=== PATIENT | female | born 1955 | race Caucasian/White ===

== ENCOUNTER 2021-11-02 13:39 | Emergency (ER) | payer MEDICARE, SELFPAY ==
[2021-11-02 14:06] VITALS: BP 106/76; PULSE 103; RESP 18; TEMP 36.4; O2SAT 85; BMI 26.6
--- NOTE | 2021-11-02 14:07 | ECG_ITS ---
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 Measurements Intervals [place] Rate: 95 P: 3 [place]: 135 QRS: -19 QRSD: 102 T: 30 QT: 375 QTc: 473 Interpretive Statements SINUS RHYTHM VOLTAGE CRITERIA FOR LVH [MEETS CRITERIA IN ONE OF: R(aVL), S(V1), R(V5), R(V5/V6)+S(V1)] INTERPRETATION BASED ON A DEFAULT AGE OF 40 YEARS No previous ECG available for comparison Electronically Signed On 11-03-2021 8:14:35 TREE SAPPER by Shruti Velez M.D. [id number] f
--- NOTE | 2021-11-02 14:07 | XRR_ITS ---
PROCEDURE INFORMATION: Exam: XR Chest Exam date and time: 11/02/2021 2:07 PM Age: 66 years old Clinical indication: Shortness of breath; Additional info: SOB TECHNIQUE: Imaging protocol: XR of the chest. Views: 1 view. COMPARISON: No relevant prior studies available. FINDINGS: Lungs: Ill-defined hazy peripheral opacification along the peripheral left lung base. Bibasilar scarring noted. Pleural spaces: Left costophrenic blunting may relate to trace left pleural effusion or scarring. No pneumothorax. Heart/Mediastinum: Unremarkable. No cardiomegaly. Bones/joints: Unremarkable. XR/XR chest 1V portable [id number] IMPRESSION: 1. Ill-defined peripheral opacification along the peripheral left lung base, possibly an infiltrate. 2. Left costophrenic blunting which may relate to trace left pleural effusion or scarring.
--- NOTE | 2021-11-02 14:16 | ED_ITS ---
HPI - SOB/Dyspnea General: Chief Complaint: Shortness of Breath/Dyspnea Stated Complaint: low o2, cough, covid , weak, sob Time Seen by Provider: 11/02/21 14:03 Source: patient Mode of arrival: ambulatory Limitations: no limitations History of Present Illness: HPI Narrative: 66-year-old female states she tested positive for COVID 10 days ago. States she received the monoclonal antibody infusion yesterday. States today her pulse ox is been running in the high 80s she states she has had some very mild shortness of breath. She denies any chest pain denies any fever patient here is on 2 L and satting 93% denies any leg swelling or pain. Associated symptoms: Deny abdominal pain, chest pain, fever(s), nausea or v omiting Review of Systems Const: Denies: fever(s), chills, body aches or change in appetite Eyes: Denies: blurry vision or eye discomfort ENMT: Denies: throat pain or dental pain Card: Denies: chest pain Resp: Reports: dyspnea and non-productive cough GI: Denies: abdominal pain, nausea, vomiting or diarrhea : Denies: dysuria Musc: Denies: neck pain or back pain Skin/Breast: Denies: rash Neuro: Denies: headache(s) Psych: Denies: depression [place]/Lymph: Denies: easy bruising All/Imm: Denies: urticaria Physical Exam Const: COMMON NORMALS: no acute distress, patient oriented x3 and healthy appearing HENMT: COMMON NORMALS: normocephalic and atraumatic HEAD & SCALP: normocephalic and atraumatic Eye: COMMON NORMALS: Equal, round and reactive pupils present and EOMs intact bilaterally PUPIL: Yes Equal, round and reactive pupils present Neck/C-Spine: COMMON NORMALS: full ROM and supple Chest: COMMONS NORMALS: normal inspection of the chest and normal palpation of entire chest wall Resp: COMMON NORMALS: normal respiratory effort, No retractions, No use of accessory muscles and clear to auscultation bilaterally AUSCULTATION: clear to auscultation bilaterally Cardio: COMMON NORMALS: regular rate, regular rhythm and No murmurs present (Cardio) RATE: regular rate RHYTHM: regular rhythm GI: COMMON NORMALS: Normal to inspection, nondistended, normoactive bowel sounds present, Soft to palpation, non-tender and no masses PALPATION: Yes Soft to palpation Extremity: COMMON NORMALS: normal to inspection and full ROM Neuro: COMMON NORMALS: patient oriented x3, moves all extremities and no focal motor deficits Psych: COMMON NORMALS: mental status grossly normal, Normal thought process present and cooperative THOUGHT PROCESS: Normal thought process present Skin: COMMON NORMALS: no rashes or lesions noted and no wounds GENERAL SKIN EXAM: no rashes or lesions noted Course Vital Signs: Vital signs: Vital Signs Temperature 97.6 F 11/02/21 14:06 Pulse Rate 93 11/02/21 15:18 Respiratory Rate 20 H 11/02/21 15:18 Blood Pressure 105/84 11/02/21 14:33 Pulse Oximetry 92 11/02/21 15:20 MDM - SOB/Dyspnea MDM Narrative: Medical decision making narrative: Patient presents with hypoxia from COVID patient qualifies for 3 L doing well on the 3 L she is able to ambulate in the halls. She states she feels well and would like to go home and feels she is stable for discharge discharge home with inhaler along with a 3 L of oxygen she is to follow-up with PCP in 2 to 4 days and return if worsening she understands agrees to plan. No signs of pulm embolism. Lab Data: Labs: Lab Results 11/02/21 11/02/21 11/02/21 14:29 14:29 15:03 WBC 5.9 10^3/uL 10^3/ uL (4.0-10.0) RBC 5.27 10^6/uL 10^6 /uL (4.1-5.3) Hgb 15.3 g/dL g/dL (11.5-15.3) Hct 45.2 % % (37.0-47.0) MCV 85.8 fl fl (81-99) MCH 29.0 pg pg (28.0-34.0) MCHC 33.8 g/dL g/dL (30.0-36.0) RDW 13.6 % % (12.1-15.1) Plt Count 333 10^3/cmm 10^3 /cmm (130-400) MPV 10.0 fL fL (7.4-10.4) Neut % (Auto) 73.1 % % Lymph % (Auto) 17.9 % % [place] % (Auto) 8.7 % % Eos % (Auto) 0.0 % % Baso % (Auto) 0.0 % % Neut # (Auto) 4.28 10^3/uL 10^3 /uL (1.8-7.7) Lymph # (Auto) 1.1 10^3/uL 10^3/ uL (0.8-4.8) [place] # (Auto) 0.5 10^3/uL 10^3/ uL (0.2-0.9) Eos # (Auto) 0.0 10^3/uL 10^3/ uL (0.0-0.8) Baso # (Auto) 0.0 10^3/uL 10^3/ uL (0.0-0.1) Nucleated RBC % (a uto) 0 % % Nucleated RBCs # 0.0 /100WBC /100W BC Sodium Cancelled 134 mmol/L L mmol /L (136-145) Potassium Cancelled 3.5 mmol/L mmol/L (3.5-5.1) Chloride Cancelled 93 mmol/L L mmol/ L (98-107) Carbon Dioxide Cancelled 27 mmol/L mmol/L (22-29) Anion Gap Cancelled 17.5 (5-19) BUN Cancelled 27 mg/dL H mg/dL (8-23) Creatinine Cancelled 0.9 mg/dL mg/dL (0.5-0.9) GFR Calculation Cancelled 62.8 mL/min L mL/ min (90-130) Glucose Cancelled 131 mg/dL H mg/dL (65-115) Calculated Osmolal ity Cancelled 285 mOsm/kg mOsm/ kg (285-295) Calcium Cancelled 8.6 mg/dL mg/dL (8.5-10.5) Total Bilirubin Cancelled 0.3 mg/dL mg/dL (0.15-1.2) AST Cancelled 29 U/L U/L (0-32) ALT Cancelled 28 U/L U/L (0-33) Alkaline Phosphata se Cancelled 64 IU/L IU/L (35-105) NT-Pro-B Natriuret Pep Cancelled 31 pg/mL pg/mL (0-125) Total Protein Cancelled 6.2 g/dL L g/dL (6.6-8.7) Albumin Cancelled 3.5 g/dL g/dL (3.5-5.2) Globulin Cancelled 2.7 g/dL g/dL (1.3-4.6) Imaging Data^: CXR: Attestation: I personally reviewed and interpreted this imaging study as follows: Radiologist's impression: sob Impression: 1. Ill-defined peripheral opacification along the peripheral left lung base, possibly an infiltrate. 2. Left costophrenic blunting which may relate to trace left pleural effusion or scarring. Dictated By: Rivas Franco DO Signed By: Rivas Franco DO Signed Date/Time: 11/02/21 1424 DD/ 1407 EKG Data^: EKG 1: Attestation: I personally reviewed and interpreted this EKG as follows: EKG Interpretation Date: 11/02/21 EKG interpretation time: 14:23 Interpretation: nsr hr [address] or t wave abnormalities qrs 102 qtc 428 Discharge Plan Discharge Patient Disposition: Home Clinical Impression: COVID-19 Condition: Stable Discharge Orders: Discharge ED (Routine); Ordered 11/02/21 Ordered By: Jimmie Jorgensen Other Ambulatory Orders: DME: Oxygen (Order) Location: None Selected Ordered By: Jimmie Jorgensen Referrals: Alexis Mackenzie MD [Primary Care Provider] - 1-3 days Discharge Diet: Advance as tolerated Discharge Activity: Resume usual activity Patient Instructions: COVID-19 (Coronavirus Disease 2019) (ED) Coding Level of Care Code ED Well Drill Operator Rotary Drill for Chg Fwd Exam Comprehensive
--- NOTE | 2021-11-02 14:32 | PC.NURSE ---
pt placed on continuous spo2 nibp and cm.
[2021-11-02 14:33] VITALS: BP 105/84; PULSE 99; RESP 24; O2SAT 93
[2021-11-02 14:49] LABS: Hematocrit 45.2 % (37.0-47.0); Hemoglobin 15.3 g/dL (11.5-15.3); Lymphocytes # 1.1 10^3/uL (0.8-4.8); Lymphocytes % 17.9 %; Mean Corpuscular HGB Conc 33.8 g/dL (30.0-36.0); Mean Corpuscular Volume 85.8 fl (81-99); Monocytes # 0.5 10^3/uL (0.2-0.9); Monocytes % 8.7 %; Neutrophils # 4.28 10^3/uL (1.8-7.7); Neutrophils % 73.1 %; Nucleated Red Blood Cells % 0 %; Platelet Count 333 10^3/cmm (130-400); Red Blood Count 5.27 10^6/uL (4.1-5.3); Red Cell Distribution Width 13.6 % (12.1-15.1); White Blood Count 5.9 10^3/uL (4.0-10.0)
[2021-11-02 15:01] LABS: Slide Review Slide Review Perform
[2021-11-02] MEDS: albuterol 8 gm MDI 2 PUFF INHALATION (15:06)
[2021-11-02 15:18] VITALS: PULSE 93; RESP 20; O2SAT 92
[2021-11-02 15:20] VITALS: O2SAT 87; O2SAT 92
[2021-11-02 15:40] LABS: Alanine Aminotransferase 28 U/L (0-33); Albumin Level 3.5 g/dL (3.5-5.2); Alkaline Phosphatase 64 IU/L (35-105); Anion Gap 17.5 (5-19); Aspartate Amino Transferase 29 U/L (0-32); Blood Urea Nitrogen 27 mg/dL (8-23); Calcium 8.6 mg/dL (8.5-10.5); Carbon Dioxide 27 mmol/L (22-29); Chloride 93 mmol/L (98-107); Creatinine Clr Calc Pharmacy 59.9553; Globulin 2.7 g/dL (1.3-4.6); Glomerular Filtration Rate 62.8 mL/min (90-130); Glucose 131 mg/dL (65-115); NT Pro B Type Natriuretic Pept 31 pg/mL (0-125); Osmolality Calculated 285 mOsm/kg (285-295); Potassium 3.5 mmol/L (3.5-5.1); Sodium 134 mmol/L (136-145); Total Bilirubin 0.3 mg/dL (0.15-1.2); Total Protein 6.2 g/dL (6.6-8.7)
[2021-11-02 17:05] VITALS: BP 136/84; PULSE 103; RESP 20; O2SAT 91
== END 2021-11-02 17:39 | disposition home or self-care (01) ==
PROVIDERS: Emergency Provider Emergency Medicine; PCP Family Medicine
DX: U07.1 COVID-19 (principal)
CPT/HCPCS: 71045; 80053; 83880; 85025; 93005; 94640; 99284; J3535